=== PATIENT | male | born 1980 | race Caucasian/White ===

== ENCOUNTER 2024-03-15 12:08 | Emergency (ER) | payer OTHER ==
[2024-03-15 12:39] VITALS: RESP 18; TEMP 98.7
--- NOTE | 2024-03-15 12:51 | ED ---
Abdominal Pain HPI - General Source: patient, RN notes reviewed Mode of arrival: ambulatory Limitations: no limitations - History of Present Illness MD Complaint: abdominal pain, flank pain Onset/Timin -: year(s) Location: epigastric, bilateral flank <Antonino Barone - Last Filed: 03/15/24 12:49> <Ashlee Evans - Last Filed: 03/15/24 15:23> - General Chief Complaint: Abdominal Pain Stated Complaint: Abd pain,LITO Time Seen by Provider: 03/15/24 12:22 - History of Present Illness Initial Comments: Quick note: This is a 43-year-old male coming from [place] presenting with bilateral flank and epigastric pain (9/10) x 2 years. Patient states pain is usually 5/10 but has worsened recently. States pain worsens with breathing/movement. States he has not been eating very well due to the pain. (Antonino Barone) This is a 43-year-old male with a history of polysubtance abuse presenting to the emergency department from [facility] with concern for diffuse abdominal pain, chest pain, back pain. Patient states that he has been experiencing constant pain in his abdomen most notably in his epigastric addition to mid chest pain and bilateral thoracic back pain over the past 2 years that will occasionally exacerbate. States that pain is worse on palpation and on inspiration. Denies hematemesis, coffee-ground emesis, medic easier, melena, urinary complaints. Patient states he has not been evaluated for symptoms as he has just regained his medical insurance. Patient is quite anxious states that he would like to go back to [place] for rehabilitation and would not like to stay in the hospital. (Ashlee Evans) - Related Data Allergies Allergy/AdvReac Type Severity Reaction Status Date / Time Penicillins AdvReac Anaphylaxis Verified 03/15/24 12:39 Review of Systems ROS Other: All systems not noted in ROS Statement are negative. <Antonino Barone - Last Filed: 03/15/24 12:49> ROS Other: All systems not noted in ROS Statement are negative. <Ashlee Evans - Last Filed: 03/15/24 15:23> ROS Statement: Those systems with pertinent positive or pertinent negative responses have been documented in the HPI. Past Medical History Past Medical History: No Reported History History of Any Multi-Drug Resistant Organisms: None Reported Past Surgical History: Orthopedic Surgery Additional Past Surgical History / Comment(s): cervical ortho Past Psychological History: Bipolar Smoking Status: Current every day smoker Past Alcohol Use History: Rare Past Drug Use History: Cocaine, Marijuana <Antonino Barone - Last Filed: 03/15/24 12:49> General Exam Limitations: no limitations <Antonino Barone - Last Filed: 03/15/24 12:49> - General Exam Comments Initial Comments: Visual Physical Exam Vital signs reviewed General: Patient appears emaciated/cachectic and appears fatigued. Head: Normocephalic, atraumatic Eyes: PERRLA, EOMI ENT: Airway patent Chest: Nonlabored breathing Skin: No visual rash, normal skin tone Neuro: Alert and oriented 3 Musculoskeletal: No gross abnormalities (Antonino Barone) Course Vital Signs 03/15/24 12:35 Temperature 98.7 F Pulse Rate 106 H Respiratory 18 Rate Blood Pressure 137/95 O2 Sat by Pulse 100 Oximetry Medical Decision Making <Antonino Barone - Last Filed: 03/15/24 12:49> - Lab Data Result diagrams: 03/15/24 13:54 03/15/24 13:54 <Ashlee Evans - Last Filed: 03/15/24 15:23> - Medical Decision Making I completed the quick note portion of this chart signed MELY Alvares (Antonino Barone) Was pt. sent in by a medical professional or institution (JULI Austin, CAR CLERK PULLMAN, urgent care, hospital, or fpc...) When possible be specific @ -[No] Did you speak to anyone other than the patient for history (EMS, parent, family, police, friend...)? What history was obtained from this source @ -[No] Did you review nursing and triage notes (agree or disagree)? Why? @ -[I reviewed and agree with nursing and triage notes] Were old charts reviewed (outside hosp., previous admission, EMS record, old EKG, old radiological studies, urgent care reports/EKG's, fpc records)? Report findings @ -[No old charts were reviewed] Differential Diagnosis (chest pain, altered mental status, abdominal pain women, abdominal pain men, vaginal bleeding, weakness, fever, dyspnea, syncope, headache, dizziness, GI bleed, back pain, seizure, CVA, palpatations, mental health, musculoskeletal)? @ -[not applicable] EKG interpreted by me (3pts min.). @ -Completed at 1349 sinus rhythm with a ventricular rate of 81, parable 163, QRS 91, QTc 414. X-rays interpreted by me (1pt min.). @ -[None done] CT interpreted by me (1pt min.). @ -[None done] U/S interpreted by me (1pt. min.). @ -[None done] What testing was considered but not performed or refused? (CT, X-rays, U/S, labs)? Why? @ -[None] What meds were considered but not given or refused? Why? @ -[None] Did you discuss the management of the patient with other professionals (professionals i.e. , PA, CAR CLERK PULLMAN, lab, RT, psych nurse, social work manager, ore washer, teacher, founder and chief technical officer, outsole caser)? Give summary @ -[No] Was smoking cessation discussed for >3mins.? @ -[No] Was critical care preformed (if so, how long)? @ -[No] Were there social determinants of health that impacted care today? How? (Homelessness, low income, unemployed, alcoholism, drug addiction, transportation, low edu. Level, literacy, decrease access to med. care, care home, rehab)? @ -[No] Was there de-escalation of care discussed even if they declined (Discuss DNR or withdrawal of care, Hospice)? DNR status @ -[No] What co-morbidities impacted this encounter? (DM, HTN, Smoking, COPD, CAD, Cancer, CVA, ARF, Chemo, Hep., AIDS, mental health diagnosis, sleep apnea, morbid obesity)? @ -[None] Was patient admitted / discharged? Hospital course, mention meds given and route, prescriptions, significant lab abnormalities, going to OR and other pertinent info. @ -[hospital course] Undiagnosed new problem with uncertain prognosis? @ -[No] Drug Therapy requiring intensive monitoring for toxicity (Heparin, Nitro, Insulin, Cardizem)? @ -[No] Were any procedures done? @ -[No] Diagnosis/symptom? @ -[default] Acute, or Chronic, or Acute on Chronic? @ -[default] Uncomplicated (without systemic symptoms) or Complicated (systemic symptoms)? @ -[default] Side effects of treatment? @ -[No] Exacerbation, Progression, or Severe Exacerbation? @ -[No] Poses a threat to life or bodily function? How? (Chest pain, [place], [place], pneumonia, PE, COPD, DKA, ARF, appy, cholecystitis, CVA, Diverticulitis, Homicidal, Suicidal, threat to staff... and all critical care pts) @ -[No] (Ashlee Evans) - Lab Data Lab Results 03/15/24 03/15/24 03/15/24 Range/Units 13:54 13:54 13:54 WBC 6.7 (3.8-10.6) k/uL RBC 4.84 (4.30-5.90) m/uL Hgb 15.2 (13.0-17.5) gm/dL Hct 43.5 (39.0-53.0) % MCV 89.7 (80.0-100.0) fL MCH 31.3 (25.0-35.0) pg MCHC 34.9 (31.0-37.0) g/dL RDW 12.5 (11.5-15.5) % Plt Count 481 H (150-450) k/uL MPV 7.6 PT (10.0-12.5) sec INR (<1.2) APTT (22.0-30.0) sec Sodium 138 (137-145) mmol/L Potassium 4.7 (3.5-5.1) mmol/L Chloride 97 L (98-107) mmol/L Carbon Dioxide 31 H (22-30) mmol/L Anion Gap 10 mmol/L BUN 11 (9-20) mg/dL Creatinine 0.91 (0.66-1.25) mg/dL Est GFR (CKD-EPI)AfAm >90 (>60 ml/min/1.73 sqM) Est GFR (CKD-EPI)NonAf >90 (>60 ml/min/1.73 sqM) Glucose 91 (74-99) mg/dL Calcium 9.9 (8.4-10.2) mg/dL Magnesium 2.0 (1.6-2.3) mg/dL Total Bilirubin 0.5 (0.2-1.3) mg/dL AST 31 (17-59) U/L ALT 13 (4-49) U/L Alkaline Phosphatase 87 (38-126) U/L Troponin I (0.000-0.034) ng/mL Total Protein 7.9 (6.3-8.2) g/dL Albumin 5.0 (3.5-5.0) g/dL Amylase 62 (30-110) U/L Lipase 38 (23-300) U/L Influenza Type A (PCR) Not Detected (Not Detectd) Influenza Type B (PCR) Not Detected (Not Detectd) RSV (PCR) Not Detected (Not Detectd) SARS-CoV-2 (PCR) Not Detected (Not Detectd) 03/15/24 03/15/24 Range/Units 14:22 14:22 WBC (3.8-10.6) k/uL RBC (4.30-5.90) m/uL Hgb (13.0-17.5) gm/dL Hct (39.0-53.0) % MCV (80.0-100.0) fL MCH (25.0-35.0) pg MCHC (31.0-37.0) g/dL RDW (11.5-15.5) % Plt Count (150-450) k/uL MPV PT 11.4 (10.0-12.5) sec INR 1.0 (<1.2) APTT 26.5 (22.0-30.0) sec Sodium (137-145) mmol/L Potassium (3.5-5.1) mmol/L Chloride (98-107) mmol/L Carbon Dioxide (22-30) mmol/L Anion Gap mmol/L BUN (9-20) mg/dL Creatinine (0.66-1.25) mg/dL Est GFR (CKD-EPI)AfAm (>60 ml/min/1.73 sqM) Est GFR (CKD-EPI)NonAf (>60 ml/min/1.73 sqM) Glucose (74-99) mg/dL Calcium (8.4-10.2) mg/dL Magnesium (1.6-2.3) mg/dL Total Bilirubin (0.2-1.3) mg/dL AST (17-59) U/L ALT (4-49) U/L Alkaline Phosphatase (38-126) U/L Troponin I <0.012 (0.000-0.034) ng/mL Total Protein (6.3-8.2) g/dL Albumin (3.5-5.0) g/dL Amylase (30-110) U/L Lipase (23-300) U/L Influenza Type A (PCR) (Not Detectd) Influenza Type B (PCR) (Not Detectd) RSV (PCR) (Not Detectd) SARS-CoV-2 (PCR) (Not Detectd) Disposition <Antonino Barone - Last Filed: 03/15/24 12:49> Is patient prescribed a controlled substance at d/c from ED?: No Time of Disposition: 15:23 <Ashlee Evans - Last Filed: 03/15/24 15:23> Clinical Impression: Chronic abdominal pain, Chest pain Disposition: HOME SELF-CARE Condition: Good Instructions (If sedation given, give patient instructions): Abdominal Pain (ED) Additional Instructions: Please return to the Emergency Department if symptoms worsen or any other concerns. Referrals: None,Stated [Primary Care Provider] - 1-2 days
[2024-03-15] MEDS: LIDOCAINE VISCOUS 2% 15 ML CUP PO ONE (14:05)
[2024-03-15] MEDS: SODIUM CHLORIDE 0.9% 1,000 ML IV STA (14:15)
[2024-03-15 14:38] LABS: ALT 13 U/L (4-49); AST 31 U/L (17-59); African American GFR (CKD) >90 (>60 ml/min/1.73 sqM); Alkaline Phosphatase 87 U/L (38-126); Amylase 62 U/L (30-110); Anion Gap 10 mmol/L; Blood Urea Nitrogen 11 mg/dL (9-20); Calcium 9.9 mg/dL (8.4-10.2); Carbon Dioxide 31 mmol/L (22-30); Chloride 97 mmol/L (98-107); Glucose 91 mg/dL (74-99); Lipase 38 U/L (23-300); Non-African American GFR(CKD) >90 (>60 ml/min/1.73 sqM); Potassium 4.7 mmol/L (3.5-5.1); Sodium 138 mmol/L (137-145); Total Bilirubin 0.5 mg/dL (0.2-1.3); Total Protein 7.9 g/dL (6.3-8.2)
[2024-03-15 14:41] LABS: HCT 43.5 % (39.0-53.0); HGB 15.2 gm/dL (13.0-17.5); MCH 31.3 pg (25.0-35.0); MCHC 34.9 g/dL (31.0-37.0); MCV 89.7 fL (80.0-100.0); Mean Platelet Volume 7.6; Platelet Count 481 k/uL (150-450); RBC 4.84 m/uL (4.30-5.90); RDW 12.5 % (11.5-15.5); WBC 6.7 k/uL (3.8-10.6)
[2024-03-15 14:48] LABS: Partial Thromboplastin Time 26.5 sec (22.0-30.0); Prothrombin Time 11.4 sec (10.0-12.5)
[2024-03-15 14:53] LABS: Influenza A Not Detected (Not Detectd); Influenza B Not Detected (Not Detectd); RSV Not Detected (Not Detectd)
--- NOTE | 2024-03-15 14:53 | XR ---
EXAMINATION TYPE: XR chest 2V DATE OF EXAM: 03/15/2024 COMPARISON: NONE CLINICAL INDICATION: Male, 43 years old with history of chest pain; , TECHNIQUE: XR chest 2V views of the chest. FINDINGS: The lungs are clear and there is no pneumothorax, pleural effusion, or focal pneumonia. Heart size normal and no overt failure. Postsurgical change overlying the cervical spine. IMPRESSION: 1. No acute process. [facility], , 03/15/2024 2:50 PM
[2024-03-15 15:23] LABS: Lymphocytes # (M) 1.54 k/uL (1.0-4.8); Neutrophils # (M) 4.56 k/uL (1.3-7.7); Neutrophils % (M) 68 %; Nucleated Red Blood Cells 0 /100 WBC (0-0); Total Cells Counted 100
[2024-03-15 15:47] VITALS: BP 132/94
[2024-03-15 15:49] VITALS: PULSE 88
== END 2024-03-15 15:52 | disposition home or self-care (01) ==
LOC: EC 12:08
DX: G89.29 Other chronic pain (principal); R10.13 Epigastric pain; R07.9 Chest pain, unspecified; F17.200 Nicotine dependence, unspecified, uncomplicated; Z88.0 Allergy status to penicillin
CPT/HCPCS: 36415; 71046; 80053; 82150; 83690; 83735; 84484; 85025; 85610; 85730; 87636; 93005; 96360; 99284